=== PATIENT | male | born 1990 | race African-American/Black ===

== ENCOUNTER 2020-12-14 02:34 | Emergency (ER) | payer MEDICAID ==
[~2020-12-14] VITALS: Ht 180.3 cm; Wt 59.0 kg
[2020-12-14 02:55] VITALS: BP 138/78
[2020-12-14] MEDS ORDERED: MEDICAL MARIJUANA (03:15)
[2020-12-14 04:05] LABS: IMMATURE GRANULOCYTES 0.1 % (0.0-5.0); MEAN CORPUSCULAR HGB 32.9 pG CALC (26.0-32.0); MEAN CORPUSCULAR HGB CONC 32.8 g/dL CAL (32.0-36.0); NEUT# 4.46 thou/uL (1.82-7.42); RED BLOOD COUNT 4.22 mill/uL (4.70-6.10); RED CELL DISTRI WIDTH 12.5 % (11.5-15.5)
[2020-12-14 04:08] LABS: HEMATOCRIT 42.4 % (39.0-50.0); HEMOGLOBIN 13.9 g/dl (14.0-18.0); MEAN CELL VOLUME 100.5 fL CALC (80.0-100.0)
[2020-12-14 04:21] LABS: ALBUMIN 3.7 g/dL (3.2-5.0); ALKALINE PHOSPHATASE 61 u/l (38-126); ANION GAP 10 (6-22 (CALC)); BILIRUBIN, TOTAL 0.2 mg/dL (0.0-1.4); BUN 8 mg/dL (9-20); BUN/CREATININE RATIO 9 (12-20 (CALC)); CARBON DIOXIDE 32 mmol/l (22-30); CHLORIDE 101 mmol/l (95-108); CREATININE 0.9 mg/dL (0.7-1.3); GFR > 60 ML/MIN (>=60 (CALC)); GFR FOR AFR.AMER. > 60 ML/MIN (>=60 (CALC)); POTASSIUM 4.1 mmol/l (3.5-5.1); SGOT/AST 24 u/l (17-59); SODIUM 138 mmol/l (137-146); TOTAL PROTEIN 7.1 g/dL (6.3-8.2)
[2020-12-14 05:38] LABS: URINE BILIRUBIN - DIPSTICK NEGATIVE (NEGATIVE); URINE BLOOD DIPSTICK NEGATIVE (NEGATIVE); URINE COLOR YELLOW; URINE GLUCOSE - DIPSTICK NEGATIVE (NEGATIVE); URINE KETONE TRACE mg/dL (NEGATIVE); URINE LEUK ESTERASE NEGATIVE (NEGATIVE); URINE PROTEIN - DIPSTICK NEGATIVE (NEG-TRACE); URINE SPECIFIC GRAVITY 1.025; URINE UROBILINOGEN - DIPSTICK 0.2 E.U./dL (0.2)
[2020-12-14 05:42] LABS: URINE NITRITE - DIPSTICK NEGATIVE (Negative)
== END 2020-12-14 06:24 | disposition left against medical advice (07) ==
LOC: ED 02:34
PROVIDERS: Emergency Medicine
DX: N49.2 Inflammatory disorders of scrotum (principal); Z91.19 Patient's noncompliance with other medical treatment and regimen

== ENCOUNTER 2022-06-24 17:30 | Emergency (ER) | payer MEDICAID ==
[~2022-06-24] VITALS: Ht 180.3 cm; Wt 64.0 kg
[2022-06-24] VITALS (9 sets, daily range): BP systolic 100–135; BP diastolic 76–96
[~2022-06-24 17:30] MED LIST: MEDICAL MARIJUANA
[2022-06-24 19:05] LABS: BASO% 0.5 % (0-3); HEMATOCRIT 40.4 % (39.0-50.0); HEMOGLOBIN 13.6 g/dl (14.0-18.0); IMMATURE GRANULOCYTES 0.3 % (0.0-5.0); LYMPH% 18.8 % (15-41); MEAN CORPUSCULAR HGB 31.7 pG CALC (26.0-32.0); MEAN CORPUSCULAR HGB CONC 33.7 g/dL CAL (32.0-36.0); NEUT# 3.93 thou/uL (1.82-7.42); NEUT% 67.4 % (42-76); RED BLOOD COUNT 4.29 mill/uL (4.70-6.10); RED CELL DISTRI WIDTH 12.1 % (11.5-15.5)
[2022-06-24 19:10] LABS: MEAN CELL VOLUME 94.2 fL CALC (80.0-100.0)
[2022-06-24 19:17] LABS: ALKALINE PHOSPHATASE 68 u/l (38-126); ANION GAP 9 (6-22 (CALC)); BUN 7 mg/dL (9-20); BUN/CREATININE RATIO 7 (12-20 (CALC)); CARBON DIOXIDE 28 mmol/l (22-30); CHLORIDE 102 mmol/l (95-108); GFR FOR AFR.AMER. > 60 ML/MIN (>=60 (CALC)); GFR OTHER RACES > 60 ML/MIN (>=60 (CALC)); POTASSIUM 3.5 mmol/l (3.5-5.1); SGOT/AST 29 u/l (17-59); SODIUM 136 mmol/l (137-146); TOTAL PROTEIN 8.4 g/dL (6.3-8.2)
[2022-06-24 19:19] LABS: ALBUMIN 4.8 g/dL (3.2-5.0); BILIRUBIN, TOTAL 0.3 mg/dL (0.2-1.3)
[2022-06-24 20:51] LABS: URINE BILIRUBIN - DIPSTICK NEGATIVE (NEGATIVE); URINE BLOOD DIPSTICK NEGATIVE (NEGATIVE); URINE COLOR YELLOW; URINE GLUCOSE - DIPSTICK NEGATIVE (NEGATIVE); URINE KETONE 15 mg/dL (NEGATIVE); URINE LEUK ESTERASE NEGATIVE (NEGATIVE); URINE PH >=9.0 (4.5-8.0); URINE PROTEIN - DIPSTICK 30 mg/dL (NEG-TRACE)
[2022-06-24 20:53] LABS: URINE NITRITE - DIPSTICK NEGATIVE (Negative)
[2022-06-24 20:59] LABS: URINE RBC 0-2 RBC/hpf (0-5); URINE WBC 0-2 WBC/hpf (0-5)
[2022-06-24] MEDS ORDERED: TORADOL PO (21:38)
[2022-06-24] MEDS ORDERED: TRAMADOL HYDROC50 M1 PO (21:38)
[2022-06-24] MEDS ORDERED: PROTONIX40 M2 PO (21:38)
== END 2022-06-24 22:28 | disposition home or self-care (01) ==
LOC: ED 17:30
PROVIDERS: Family Medicine
DX: R10.84 Generalized abdominal pain (principal); Z20.822 Contact with and (suspected) exposure to COVID-19
CPT/HCPCS: Q9967; S0164